=== PATIENT | female | born 1995 | race Caucasian/White ===

== ENCOUNTER → 2019-03-06 15:18 | Outpatient (CLI) | payer OTHER, SELFPAY | PROVIDERS: Visit Provider Obstetrics & Gynecology | DX: Z11.3 Encounter for screening for infections with a predominantly sexual mode of transmission (principal); Z12.4 Encounter for screening for malignant neoplasm of cervix ==

== ENCOUNTER → 2019-03-15 15:06 | Outpatient (CLI) | payer OTHER, SELFPAY ==
[2019-03-15 15:49] LABS: Color, Urine Yellow (Yellow); Glucose, Dipstick Normal (Normal); Ketone-Dipstick Negative (Negative); Leukocyte Esterase-Dipstick 25 /ul (Negative); Nitrite-Dipstick Negative (Negative); Occult Blood-Urine Negative /ul (Negative); Protein-Dipstick Negative (Negative); Specific Gravity, Urine 1.015 (1.002-1.030); Urine Bilirubin Dipstick Negative (Negative); Urine Clarity Clear (Clear); Urine Urobilinogen Normal (Normal)
[2019-03-15 16:48] LABS: Absolute Lymphocyte Count 2.66 X10^3/uL (0.83-4.51); Basophil# 0.09 X10^3/uL; Basophil% 0.6 % (0-1); Eosinophil# 0.44 X10^3/uL; Eosinophils% 3.1 % (0-5); Hematocrit 37.3 % (37-47); Hemoglobin 12.4 g/dL (12.0-15.0); Lymphocyte # 2.66 X10^3/ul (4.0); Lymphocyte % 18.8 % (19-41); Mean Corp Hgb Conc 33.2 g/dL (32-36); Mean Corpuscular Hgb 30.4 pg (27.0-32.0); Mean Corpuscular Volume 91.4 fL (81-99); Monocyte# 0.87 X10^3/uL; Monocyte% 6.2 % (0-10); NRBC Flagged by Analyzer 0 % (0-5); Neutrophil # 10.01 X10^3/uL (2.7-7.7); Neutrophil % 70.8 % (47-70); Platelet Count 276 K/mm3 (150-450); RBC Distribution Width CV 12.2 % (11.6-14.6); RBC Distribution Width SD 40.6 fl (35.1-43.9); Red Blood Count 4.08 M/mm3 (4.2-5.4); White Blood Count 14.1 K/mm3 (4.4-11.0)
[2019-03-15 17:37] LABS: Amphetamine Urine VISTA NEGATIVE (<1000 ng/mL); Barbiturate Urine VISTA NEGATIVE (< 200 ng/mL); Benzodiazepine Urine VISTA NEGATIVE (< 200 ng/mL); Cocaine Urine VISTA NEGATIVE (< 300 ng/mL); Ecstacy Urine VISTA NEGATIVE (< 500 ng/mL); Methadone Urine VISTA NEGATIVE (< 300 ng/mL); PCP Urine VISTA NEGATIVE (< 25 ng/mL); THC Urine VISTA NEGATIVE (< 50 ng/mL); Vista UDS pH Range 6
[2019-03-16 02:37] LABS: Prenatal RPR NONREACTIVE (NONREACTIVE)
[2019-03-16 09:11] LABS: HIV - WCH Non-Reactive (Nonreactive); Hepatitis B Surface Antigen Non-Reactive (Nonreactive); Hepatitis C Antibody Non-Reactive (Nonreactive); Rubella IgG 18.8 IU/mL
== END ==
PROVIDERS: Visit Provider Obstetrics & Gynecology
DX: Z34.81 Encounter for supervision of other normal pregnancy, first trimester (principal)
CPT/HCPCS: 36415; 80307; 81002; 84443; 85025; 86703; 86762; 86803; 87340

== ENCOUNTER → 2019-05-09 11:03 | Outpatient (CLI) | payer OTHER, SELFPAY | PROVIDERS: Visit Provider Obstetrics & Gynecology | DX: O99.89 Other specified diseases and conditions complicating pregnancy, childbirth and the puerperium (principal); R19.5 Other fecal abnormalities; Z3A.00 Weeks of gestation of pregnancy not specified | CPT/HCPCS: 87177; 87209 ==

== ENCOUNTER → 2019-08-01 09:14 | Outpatient (CLI) | payer OTHER, SELFPAY ==
[2019-08-01 10:51] LABS: Glucose Challenge Gest 1H 50g 69 mg/dL (70-140)
[2019-08-01 10:57] LABS: Hematocrit 33.8 % (37-47); Hemoglobin 11.1 g/dL (12.0-15.0); Mean Corp Hgb Conc 32.8 g/dL (32-36); Mean Corpuscular Hgb 30.5 pg (27.0-32.0); Mean Corpuscular Volume 92.9 fL (81-99); Mean Platelet Vol. 10.7 fl (6.2-12.0); Platelet Count 209 K/mm3 (150-450); RBC Distribution Width CV 13.2 % (11.6-14.6); RBC Distribution Width SD 44.6 fl (35.1-43.9); Red Blood Count 3.64 M/mm3 (4.2-5.4); White Blood Count 13.1 K/mm3 (4.4-11.0)
== END ==
PROVIDERS: Visit Provider Obstetrics & Gynecology
DX: Z34.83 Encounter for supervision of other normal pregnancy, third trimester (principal)
CPT/HCPCS: 36415; 82950; 85027; 86850

== ENCOUNTER → 2019-10-03 | Outpatient (CLI) | payer OTHER, SELFPAY | END | disposition home or self-care (01) | LOC: LABSPEC 16:17 | PROVIDERS: Referring Provider Obstetrics & Gynecology; Visit Provider Obstetrics & Gynecology | DX: Z36.85 Encounter for antenatal screening for Streptococcus B (principal) | CPT/HCPCS: 87077; 87081; 87186 ==

== ENCOUNTER 2019-10-20 11:25 | Outpatient (CLI) | payer OTHER, SELFPAY ==
[2019-10-20 11:46] VITALS: TEMP 37.3
[2019-10-20 11:47] VITALS: BP 110/59; PULSE 86
[2019-10-20 11:48] VITALS: BMI 26.5
[2019-10-20 12:12] LABS: ROM Internal Control Test YES-OK TO RESULT pt. (Internal QC)
[2019-10-20 12:13] LABS: ROM Patient Test Negative (Negative)
[2019-10-20 12:21] VITALS: TEMP 37.3
--- NOTE | 2019-10-20 16:52 | OB.TRI.PN ---
Progress Notes Date of Service: 10/20/19 Progress Note: Patient presents for triage evaluation secondary to possible rupture membranes FHT: 130 Moderate variability reactive no decelerations category I tracing [place]: Irregular contractions Assessment and plan: False labor negative rupture membranes on laboratory evaluation, 1 thick and high, reactive NST, reassuring maternal and status patient discharged to home to follow-up as scheduled in the office. See problem list details for additional plan information. Laboratory Studies: Laboratory Tests 10/20/19 Range/Units 11:50 Vag Amniotic Fld Detect Negative (Negative) Multi Select Codes - Urinary/Genital Urinary/Genital CPT Codes: 12763-54 non-stress test Interp
[2019-10-21 03:13] VITALS: PULSE 88; O2SAT 95
[2019-10-21 03:15] VITALS: BP 145/103; PULSE 71; TEMP 36.1
== END 2019-10-20 12:35 | disposition home or self-care (01) ==
LOC: WPOUT 11:32 → WP 10-22 10:43
PROVIDERS: Referring Provider Obstetrics & Gynecology; Visit Provider Obstetrics & Gynecology
DX: Z03.79 Encounter for other suspected maternal and fetal conditions ruled out (principal)
CPT/HCPCS: 59025; 59050; 84112; 99218; G0378

== ENCOUNTER 2019-10-23 01:32 | Inpatient (IN) | payer OTHER, SELFPAY ==
[2019-10-23] VITALS (66 sets, daily range): BP systolic 81–131; BP diastolic 45–85; PULSE 53–163; RESP 16; TEMP 36.5–37.4; O2SAT 79–100; BMI 26.4
[2019-10-23 01:32] LABS: ROM Internal Control Test YES-OK TO RESULT pt. (Internal QC); ROM Patient Test POSITIVE (Negative)
[2019-10-23] MEDS: Lactated Ringers 1,000 ML 200 ML IV ×3 (02:13→15:10)
[2019-10-23 02:32] LABS: Basophil# 0.09 X10^3/uL; Basophil% 0.6 % (0-1); Eosinophil# 0.43 X10^3/uL; Eosinophils% 2.8 % (0-5); Hematocrit 36.7 % (37-47); Hemoglobin 12.3 g/dL (12.0-15.0); Lymphocyte % 15.2 % (19-41); Mean Corp Hgb Conc 33.5 g/dL (32-36); Mean Corpuscular Hgb 31.5 pg (27.0-32.0); Mean Corpuscular Volume 93.9 fL (81-99); Mean Platelet Vol. 11.4 fl (6.2-12.0); Monocyte# 1.05 X10^3/uL; Monocyte% 6.9 % (0-10); NRBC Flagged by Analyzer 0 % (0-5); Neutrophil % 72.8 % (47-70); Platelet Count 239 K/mm3 (150-450); RBC Distribution Width CV 13.7 % (11.6-14.6); RBC Distribution Width SD 46.5 fl (35.1-43.9); Red Blood Count 3.91 M/mm3 (4.2-5.4); White Blood Count 15.1 K/mm3 (4.4-11.0)
[2019-10-23] MEDS: Oxytocin 30 units/NS 500 ml 30 UNITS/500 ML IV.SOLN IV (02:32)
--- NOTE | 2019-10-23 06:15 | HP.PCM_ITS ---
- Problem List (1) 39 weeks gestation of Status: Acute History Date of Admission: 10/23/19 Final JEFF: 10/27/19 Final JEFF Source: US <20 weeks Gestational age: 39 Weeks and 3 Days History of this : This is a 24 year-old, G [1], P [], at 39.3 weeks gestational age with c/o leaking of clear fluid. Surgical History: Surgical History (Last Updated 10/23/19 @ 18:[address] Lee Ann Burk MD) S/P appendectomy Z90.49 Allergies Sulfa (Sulfonamide Antibiotics) Allergy (Verified 10/23/19 01:08) Rash Home Medications: Home Medications Caplet 10/20/19 Smoking Status: Former smoker Alcohol: None Number of Fetus(es): 1 NST - FHR Rate Baby A Baseline: 120 Accelerations:: 15 x 15 Decelerations:: None NST Reactive:: Yes FHR Category:: Category I Uterine Activity:: 08/30 History Past Pregnancies: Past Pregnancies Delivery Date Name GA/ Weeks Outcome Route Wt Sex Labor Length Anesthesia Delivery Location Provider FOB Labs: Mom's Problem List Problem Status Onset Code 39 weeks gestation of Acute Z3A.39 Vacuum-assisted vaginal delivery Acute Z37.9 Mom's Labs & Results 10/23/19 10/23/19 10/23/19 01:14 01:52 02:14 WBC 15.1 H RBC 3.91 L Hgb 12.3 Hct 36.7 L MCV 93.9 MCH 31.5 MCHC 33.5 RDW Std Deviation 46.5 H RDW Coeff of Ann 13.7 Plt Count 239 MPV 11.4 Immature Gran % (Auto) 1.700 H Neut % (Auto) 72.8 H Lymph % (Auto) 15.2 L [place] % (Auto) 6.9 Eos % (Auto) 2.8 Baso % (Auto) 0.6 Absolute Neuts (auto) 11.0 H Absolute Lymphs (auto) 2.30 Nucleated RBC % 0 Vag Amniotic Fld Detect POSITIVE H COVID-19 (MADY) Not Detected Blood Type Antibody Screen 10/23/19 02:14 WBC RBC Hgb Hct MCV MCH MCHC RDW Std Deviation RDW Coeff of Ann Plt Count MPV Immature Gran % (Auto) Neut % (Auto) Lymph % (Auto) [place] % (Auto) Eos % (Auto) Baso % (Auto) Absolute Neuts (auto) Absolute Lymphs (auto) Nucleated RBC % Vag Amniotic Fld Detect COVID-19 (MADY) Blood Type A NEGATIVE Antibody Screen NEGATIVE Course Did the patient receive Yes care? Labs Blood Type: A RH: NEGATIVE RPR/VDRL/Syphilis Nonreactive Rubella status Immune Date Done: 03/15/19 Chlamydia Negative Gonorrhea Negative HIV/AIDS Non-Reactive Group B Strep: Positive Current Obstetrical History Gestational Diabetes No Incompetent Cervix No Infertility No IUGR No Macrosomia No Hypertension/Pre-eclampsia No Placenta Previa/Abruption Yes: resolved around 34 weeks PTL/PROM No Uterine anomaly No Oligohydramnios No Polyhydramnios No Multiple gestation No Past Medical History Asthma No Diabetes No Hypertension No Heart disease No Mitral valve prolapse No Neurologic/Seizure disorder/ No Migraines Kidney disease No Liver disease No Varicosities No Clotting disorders/Hx of DVT No Thyroid Dysfunction No Other medical diseases No Psychiatric disorders No Major trauma No Abnormal PAP smear No Sleep apnea No Mammogram in the last 2 years No Social History Marital Status: Alleged father marina Martines Hx Smoking No Smoking Status Former smoker How long have you used n/a substances (years)? What date/time did you last n/a use any of the above? Have you had any previous n/a inpatient or outpatient treatment Expected Delivery Method: Spontaneous Vaginal Number of Visits: 11 Physical Exam Vitals: Vital Signs Temp Pulse BP Pulse Ox 98.4 F 127 H 128/59 H 83 10/23/19 15:39 10/23/19 17:50 10/23/19 17:50 10/23/19 16:12 General: Alert, Oriented x3, Cooperative, No apparent distress HEENT: Atraumatic, Normocephalic Cardiovascular: Regular rate, Regular Rhythm, Normal S1, Normal S2 Lungs: Clear to auscultation, Normal air movement Abdomen: Soft, Non Tender, Non-Distended, Gravid Neurological: Neuro grossly intact Estimated gestational size: Appropriate for gestational size Presentation: Cephalic Cervix Dilation (cm): 2 Station: 0 Effacement (%): 75 - per NURY Shay Assessment/Plan All Active Problems 39 weeks gestation of (Acute) Vacuum-assisted vaginal delivery (Acute) This is a 24 year-old, G [1], P [], at 39 3/7 weeks gestational age with SROM, Cat I FHR -Pitocin as tolerated by mother and fetus -Maternal and statuses reassuring -PCN for GBS ppx
[2019-10-23] MEDS: Lactated Ringers 500 ML 999 ML IV (11:00)
[2019-10-23] MEDS: fentaNYL-bupivacaine (epidural) 100 ML BAG EPIDURAL (12:45)
[2019-10-23] MEDS: Oxytocin 30 units/NS 500 ml 30 UNITS/500 ML IV.SOLN 334 UNITS IV (16:15)
[2019-10-23] MEDS: Methylergonovine 0.2 MG/ML Ampul IM (16:40)
--- NOTE | 2019-10-23 16:53 | OP.PCM_ITS ---
Problem List (1) 39 weeks gestation of Status: Acute (2) Vacuum-assisted vaginal delivery Status: Acute Vaginal Delivery Maternal Presentation: Spontaneous Rupture of Membranes Method of Induction: - - pitocin for augmentation from latent labor Amniotic Membrane Rupture Type: Spontaneous at home Rupture of Membrane time: 10/22/19 1800H Amniotic Fluid Description: Clear Final JEFF: 10/27/19 Final JEFF Source: US <20 weeks Gestational age: 39 Weeks and 3 Days doctor who attended delivery (if requested by OB): Keturah Workman Date of Procedure: 10/23/19 Pre-Operative Diagnosis: 39 3/7wga, Category II FHR Post-Operative Diagnosis: 39 3/7wga, Category II FHR Surgery/ Procedure Performed: Vacuum Assisted Vaginal Delivery Anesthesiologist: Imelda Martinez Type of Anesthesia: Epidural Description of Procedure: Patient was FD/+2 station on my arrival with Cat II FHR. I assumed care from the CNM. Given prolonged and recurrent decelerations I advised vacuum assistance. Reviewed vacuum related risks, benefits and indications. On exam FD/+2 station and OA. The Kiwi cap was applied to the flexion point and 500mmHg suction applied. There were 4 pulls with 4 contractions and a single pop-off with . A right mediolateral episiotomy was performed and the Ritgen maneuver employed along with maternal expulsive efforts to deliver the head. The infant restituted, the anterior then posterior shoulders delivered. The was placed on the maternal abdomen and further attended by nursery personnel. The cord was doubly clamped and cut after approximately 30-60 seconds. Cord blood and cord gases were obtained. The placenta delivered spontaneously and appeared intact on inspection. Intrauterine exam was performed. A left cervical laceration at 3 o'clock was repaired with 2-0 Vicryl. The right mediolateral episiotomy was repaired with 3-0 Vicryl Rapide. Fundus firm. Sponge and needle counts correct x 2. Presentation: Vertex Placental Delivery Description: Spontaneous Placenta Disposition: [facility] Cord Vessel Description: 3 Vessels Nuchal Cord Compression: Without compression Cord Gases drawn per routine: ABG, VBG Cord Entanglement: None Drain: - - straight cath of bladder Estimated Blood Loss: 550 ml A gender: Female (1 minute): 8 (5 minute): 9 Episiotomy Description: Right Mediolateral, 2nd degree Laceration: Cervical Extension/lac Medications given after delivery: IV Pitocin, IM Methergin Complications: None
[2019-10-24] MEDS: Acetaminophen 500 MG Tablet 1000 MG PO (01:21)
[2019-10-24 04:00] VITALS: BP 105/59; PULSE 74; RESP 18; TEMP 36.9
--- NOTE | 2019-10-24 08:17 | PCM.PN.OB ---
Patient Problems: Active and Suspected Problems 39 weeks gestation of (Acute) Vacuum-assisted vaginal delivery (Acute) Subjective: Got some rest overnight and feeling much better. Mild cramping and vaginal pain. Has been taking Motrin and Tylenol and due for next dose. daughter. It takes a few minutes to get her to latch correctly, but once she latches she does well. Denies heavy bleeding. Passing flatus and urinating well. Objective: VSS. Fundus is firm, midline, u/1. Lochia rubra moderate. - Physical Exam Vitals/I&O's: Vital Signs Temp Pulse Resp BP Pulse Ox 98.4 F 74 18 105/59 L 83 10/24/19 04:00 10/24/19 04:00 10/24/19 04:00 10/24/19 04:00 10/23/19 16:12 Oxygen Delivery Method Room Air Weight: 65.68 kg Body Mass Index (BMI) 26.4 Intake and Output for Last 24 Hours 10/22/19 10/23/19 10/24/19 23:59 23:59 23:59 Intake Total 3506.67 / 3506.67 Output Total 1000 / 1000 Balance 2506.67 / 2506.67 General: Alert, Oriented x3, Cooperative HEENT: Atraumatic, PERRLA, EOMI, Normocephalic Neck: Supple, No JVD, Negative Carotid Bruits Lungs: Clear to auscultation, Normal air movement Cardiovascular: Regular rate, No murmurs Abdomen: Bowel Sounds Present, Soft, Non Tender Extremities: No edema, Capillary Refill Less than 3 Seconds Skin: No rashes, No breakdown Musculoskeletal: No Tenderness to Palpation of Joints or Extremities Neurological: Cranial nerves II-XII grossly intact Psych/Mental Status: Normal Affect, Appropriate Current Medications Acetaminophen (Tylenol) 325 - 650 mg PO Q4H PRN PRN PRN Reason: Pain Score 1-3/10 Acetaminophen (Tylenol) 1,000 mg PO Q8H PRN PRN PRN Reason: Pain Score 1-3/10 Last Admin: 10/24/19 01:21 Dose: 1,000 mg Documented by: Acetaminophen (Tylenol Liquid) 650 mg PO Q4H PRN PRN PRN Reason: Pain or Fever Bisacodyl (Dulcolax) 10 mg RECTAL UD PRN PRN Reason: If no BM Dibucaine (Dibucaine) 1 applic TOPICAL TID PRN PRN; Protocol PRN Reason: Discomfort Hydrocortisone (Hytone) 1 applic TOPICAL TID PRN PRN; Protocol PRN Reason: Discomfort Ibuprofen (Motrin Liquid) 600 mg PO Q6H PRN PRN PRN Reason: Pain/Inflammation Methylergonovine Maleate (Methergine) 0.2 mg IM X1 PRN PRN Reason: Excess bleeding/uterine atony Last Admin: 10/23/19 16:40 Dose: 0.2 mg Documented by: Senna/Docusate Sodium (Senokot-S, Deisi-Colace) 1 - 2 tablet PO DAILY PRN PRN PRN Reason: Constipation Simethicone (Mylicon) 80 mg PO PCHS PRN PRN Reason: Indigestion/Stomach pain Sodium Chloride () 5 - 15 ml IV UD PRN PRN Reason: SALINE FLUSH Medical Necessity - Tobacco Use Smoking Status: Former smoker Assessment/Plan All Active Problems 39 weeks gestation of (Acute) Vacuum-assisted vaginal delivery (Acute) This is a 24 year-old, G [1], P [0], PPD#1 s/p VAVD doing well. -Rh negative - -Female infant without a clitoral awad. Examined by Dr. Iqbal and Dr. Wells -Routine care -Educated on , latch, and engorgement as well as depression, cramping with involution and normal lochia pattern -May want to discharge this evening, will return to check on her after 24H
--- NOTE | 2019-10-24 08:28 | DCINST_ITS ---
Discharge Diet: No Restrictions Discharge Activity: Return to Normal Activity, May not drive while taking narcotic pain medications., May Shower May resume sexual activity in: 4-6 weeks Additional Activity Instructions:: Nothing in the vagina for 4-6 weeks. You may return to work/school in 6 weeks. Call your doctor if your incision/area has: Continuous Slow Oozing, Sudden Increased Bleeding, Increased Pain/ Swelling, Increased Redness, Foul Smelling Discharge Additional Instructions: If you experience any of the following, contact your healthcare provider. * Bleeding that soaks a pad every hour for 2 hours * Fever 100.4 or higher * Unrelieved incision or abdominal pain * Swelling, redness, discharge or bleeding from your incision or episiotomy site * Your incision begins to separate * Problems urinating (including inability to urinate or burning while urinating). * Visual changes * Severe headache * Flu-like symptoms * Pain or redness in one of both of your breasts * Pain, warmth, tenderness or swelling in your legs, especially the calf area * Frequent nausea and vomiting * Symptoms of depression or anxiety If you experience any of the following, call 911 or go to the nearest Emergency Room. * Chest pain * Problems breathing * Seizure activity * Partial or complete paralysis of a body part, slurred speech, weakness or drooping of the face, or a sudden inability to walk or hold your balance Allergies/Adverse Reactions: Allergies Sulfa (Sulfonamide Antibiotics) Allergy (Verified 10/23/19 01:08) Rash Medications to take at Discharge Caplet 10/20/19 Please Follow Up With: Mabel Sparks CNM When: Call to make an appointment with your CNM in 2 weeks for a telehealth appt and call for in person appt for 6 weeks. Test Results: Test results from this visit will be discussed in further detail at your follow- up appointment, if applicable.
--- NOTE | 2019-10-24 08:28 | PCM.DCVAG ---
Discharge Diet: No Restrictions Discharge Activity: Return to Normal Activity, May not drive while taking narcotic pain medications., May Shower May resume sexual activity in: 4-6 weeks Additional Activity Instructions:: Nothing in the vagina for 4-6 weeks. You may return to work/school in 6 weeks. Call your doctor if your incision/area has: Continuous Slow Oozing, Sudden Increased Bleeding, Increased Pain/ Swelling, Increased Redness, Foul Smelling Discharge Additional Instructions: If you experience any of the following, contact your healthcare provider. Bleeding that soaks a pad every hour for 2 hours Fever 100.4 or higher Unrelieved incision or abdominal pain Swelling, redness, discharge or bleeding from your incision or episiotomy site Your incision begins to separate Problems urinating (including inability to urinate or burning while urinating). Visual changes Severe headache Flu-like symptoms Pain or redness in one of both of your breasts Pain, warmth, tenderness or swelling in your legs, especially the calf area Frequent nausea and vomiting Symptoms of depression or anxiety If you experience any of the following, call 911 or go to the nearest Emergency Room. Chest pain Problems breathing Seizure activity Partial or complete paralysis of a body part, slurred speech, weakness or drooping of the face, or a sudden inability to walk or hold your balance Allergies/Adverse Reactions: Allergies Sulfa (Sulfonamide Antibiotics) Allergy (Verified 10/23/19 01:08) Rash Medications to take at Discharge Caplet 10/20/19 Please Follow Up With: Mabel Sparks CNM When: Call to make an appointment with your CNM in 2 weeks for a telehealth appt and call for in person appt for 6 weeks. Test Results: Test results from this visit will be discussed in further detail at your follow-up appointment, if applicable.
[2019-10-24 09:15] VITALS: BP 108/66; PULSE 80; RESP 16; TEMP 36.7
[2019-10-24] MEDS: Ibuprofen 100 MG/5 ML UDC 600 MG PO ×3 (09:17→23:14)
[2019-10-24] MEDS: Senna/Docusate Sodium 1 Tablet PO (11:51)
[2019-10-24] MEDS: Acetaminophen 650 MG/20 ML UDC PO ×2 (11:51→20:22)
[2019-10-24 12:20] VITALS: BP 102/56; PULSE 82; TEMP 36.7
[2019-10-24 17:25] VITALS: BP 109/67; PULSE 74; RESP 14; TEMP 36.6
[2019-10-24 21:26] VITALS: BP 110/63; PULSE 79; RESP 16; TEMP 36.6; O2SAT 97
[2019-10-25 02:07] VITALS: BP 107/60; PULSE 58; RESP 14; TEMP 36.7
[2019-10-25 08:00] VITALS: BP 106/67; PULSE 92; RESP 16; TEMP 36.5; O2SAT 99
--- NOTE | 2019-10-25 08:12 | PCM.PN.OB ---
Patient Problems: Active and Suspected Problems 39 weeks gestation of (Acute) Vacuum-assisted vaginal delivery (Acute) Subjective: Feeling well and rested. Denies pain or heavy bleeding. is going well with no concerns. Worried about first bowel movement, but is passing flatus. Would like to discharge home. Objective: VSS. Fundus is firm, midline, u/2. Lochia rubra moderate - Physical Exam Vitals/I&O's: Vital Signs Temp Pulse Resp BP Pulse Ox 98.1 F 58 L 14 107/60 97 10/25/19 02:07 10/25/19 02:07 10/25/19 02:07 10/25/19 02:07 10/24/19 21:26 Oxygen Delivery Method Room Air Weight: 65.68 kg Body Mass Index (BMI) 26.4 Intake and Output for Last 24 Hours 10/23/19 10/24/19 10/25/19 23:59 23:59 23:59 Intake Total 3506.67 / 3506.67 Output Total 1000 / 1000 Balance 2506.67 / 2506.67 General: Alert, Oriented x3, Cooperative HEENT: Atraumatic, PERRLA, EOMI, Normocephalic Neck: Supple, No JVD, Negative Carotid Bruits Lungs: Clear to auscultation, Normal air movement Cardiovascular: Regular rate, No murmurs Abdomen: Bowel Sounds Present, Soft, Non Tender Extremities: No edema, Capillary Refill Less than 3 Seconds Skin: No rashes, No breakdown Musculoskeletal: No Tenderness to Palpation of Joints or Extremities Neurological: Cranial nerves II-XII grossly intact Psych/Mental Status: Normal Affect, Appropriate Current Medications Acetaminophen (Tylenol) 325 - 650 mg PO Q4H PRN PRN PRN Reason: Pain Score 1-3/10 Acetaminophen (Tylenol) 1,000 mg PO Q8H PRN PRN PRN Reason: Pain Score 1-3/10 Last Admin: 10/24/19 01:21 Dose: 1,000 mg Documented by: Acetaminophen (Tylenol Liquid) 650 mg PO Q4H PRN PRN PRN Reason: Pain or Fever Last Admin: 10/24/19 20:22 Dose: 650 mg Documented by: Bisacodyl (Dulcolax) 10 mg RECTAL UD PRN PRN Reason: If no BM Dibucaine (Dibucaine) 1 applic TOPICAL TID PRN PRN; Protocol PRN Reason: Discomfort Hydrocortisone (Hytone) 1 applic TOPICAL TID PRN PRN; Protocol PRN Reason: Discomfort Ibuprofen (Motrin Liquid) 600 mg PO Q6H PRN PRN PRN Reason: Pain/Inflammation Last Admin: 10/24/19 23:14 Dose: 600 mg Documented by: Methylergonovine Maleate (Methergine) 0.2 mg IM X1 PRN PRN Reason: Excess bleeding/uterine atony Last Admin: 10/23/19 16:40 Dose: 0.2 mg Documented by: Senna/Docusate Sodium (Senokot-S, Deisi-Colace) 1 - 2 tablet PO DAILY PRN PRN PRN Reason: Constipation Last Admin: 10/24/19 11:51 Dose: 1 tablet Documented by: Simethicone (Mylicon) 80 mg PO PCHS PRN PRN Reason: Indigestion/Stomach pain Sodium Chloride () 5 - 15 ml IV UD PRN PRN Reason: SALINE FLUSH Medical Necessity - Tobacco Use Smoking Status: Former smoker Assessment/Plan All Active Problems 39 weeks gestation of (Acute) Vacuum-assisted vaginal delivery (Acute) A/P: S/P VAVD day #2 Normal involution and course mother Educated on OTC stool softener, hydration, and high fiber until first bowel movement Dyad stable To discharge home with a 2 week telehealth follow up appt and a 6 week routine appt Advised of depression and when to call
[2019-10-25] MEDS: Acetaminophen 650 MG/20 ML UDC PO (12:03)
== END 2019-10-25 12:05 | disposition home or self-care (01) | DRG 768 ==
LOC: WPOUT 01:33 → WP 01:33
PROVIDERS: Admitting Provider Obstetrics & Gynecology; Visit Provider Obstetrics & Gynecology
DX: O76 Abnormality in fetal heart rate and rhythm complicating labor and delivery (principal); Z37.0 Single live birth; O71.3 Obstetric laceration of cervix; O42.02 Full-term premature rupture of membranes, onset of labor within 24 hours of rupture; O99.824 Streptococcus B carrier state complicating childbirth; O70.1 Second degree perineal laceration during delivery; Z3A.39 39 weeks gestation of pregnancy; Z87.891 Personal history of nicotine dependence
CPT/HCPCS: 59025; 59050; 84112; 85025; 86850; 86900; 86901; 87635; 99218; G2023; J7120; G0378; U0003

== ENCOUNTER → 2020-11-18 09:49 | Outpatient (CLI) | payer OTHER, SELFPAY ==
[2019-10-23 01:08] VITALS: BMI 26.4
[2020-11-18 11:27] LABS: hCG Titer Quant., Serum 194 mIU/mL (1-3)
== END ==
LOC: LABSPEC 09:51 → WOBLAB 09:54
PROVIDERS: Visit Provider Student in an Organized Health Care Education/Training Program
DX: N92.6 Irregular menstruation, unspecified (principal)
CPT/HCPCS: 36415; 84702

== ENCOUNTER → 2020-11-20 10:08 | Outpatient (CLI) | payer OTHER, SELFPAY ==
[2019-10-23 01:08] VITALS: BMI 26.4
[2020-11-20 11:02] LABS: hCG Titer Quant., Serum 247 mIU/mL (1-3)
== END ==
PROVIDERS: Visit Provider Student in an Organized Health Care Education/Training Program
DX: O20.0 Threatened abortion (principal); Z3A.00 Weeks of gestation of pregnancy not specified
CPT/HCPCS: 36415; 84702

== ENCOUNTER → 2020-11-28 09:55 | Outpatient (CLI) | payer OTHER, SELFPAY ==
[2019-10-23 01:08] VITALS: BMI 26.4
[2020-11-28 10:15] LABS: Hematocrit 39.9 % (37-47); Hemoglobin 13.2 g/dL (12.0-15.0); Mean Corp Hgb Conc 33.1 g/dL (32-36); Mean Corpuscular Hgb 30.1 pg (27.0-32.0); Mean Corpuscular Volume 90.9 fL (81-99); Mean Platelet Vol. 10.1 fl (6.2-12.0); Platelet Count 301 K/mm3 (150-450); RBC Distribution Width CV 12.3 % (11.6-14.6); RBC Distribution Width SD 41.1 fl (35.1-43.9); Red Blood Count 4.39 M/mm3 (4.2-5.4); White Blood Count 7.9 K/mm3 (4.4-11.0)
[2020-11-28 11:04] LABS: ALB/GLOB Ratio 1.2 RATIO (0.9-2.4); AST(SGOT) 13 U/L (15-37); Alanine Aminotransfer ALT/SGPT 19 U/L (13-56); Albumin, Serum 4.2 g/dL (3.2-5.0); Alkaline Phosphatase 66 U/L (45-117); Anion Gap 6 (5-15); BUN 15 mg/dL (7-18); BUN/Creat Ratio 22.6 RATIO (10-20); Calcium,Total 8.9 mg/dL (8.5-10.1); Chloride 105 mmol/L (98-107); Creatinine, Serum 0.66 mg/dL (0.55-1.02); EST Glomerular Filtration Rate 115 mL/min (>60); Est Glom Filt Rate - Afr Amer 139 mL/min (>60); Globulin 3.4 g/dL (2.2-4.2); Glucose 91 mg/dL (74-106); Potassium 4.5 mmol/L (3.5-5.1); Protein, Total 7.6 g/dL (6.4-8.2); Sodium Level 137 mmol/L (136-145); hCG Titer Quant., Serum 668 mIU/mL (1-3)
== END ==
PROVIDERS: Visit Provider Obstetrics & Gynecology
DX: O02.81 Inappropriate change in quantitative human chorionic gonadotropin (hCG) in early pregnancy (principal); Z3A.00 Weeks of gestation of pregnancy not specified
CPT/HCPCS: 36415; 80053; 84702; 85027

== ENCOUNTER → 2020-12-01 10:28 | Outpatient (CLI) | payer OTHER, SELFPAY ==
[2019-10-23 01:08] VITALS: BMI 26.4
[2020-12-01 11:56] LABS: hCG Titer Quant., Serum 929 mIU/mL (1-3)
== END ==
PROVIDERS: Visit Provider Obstetrics & Gynecology
DX: O02.81 Inappropriate change in quantitative human chorionic gonadotropin (hCG) in early pregnancy (principal); Z3A.00 Weeks of gestation of pregnancy not specified
CPT/HCPCS: 36415; 84702

== ENCOUNTER → 2020-12-05 10:14 | Outpatient (CLI) | payer OTHER, SELFPAY ==
[2019-10-23 01:08] VITALS: BMI 26.4
[2020-12-05 11:34] LABS: hCG Titer Quant., Serum 1113 mIU/mL (1-3)
== END ==
PROVIDERS: Visit Provider Obstetrics & Gynecology
DX: O02.81 Inappropriate change in quantitative human chorionic gonadotropin (hCG) in early pregnancy (principal); Z3A.00 Weeks of gestation of pregnancy not specified
CPT/HCPCS: 36415; 84702

== ENCOUNTER 2020-12-05 19:58 | Emergency (ER) | payer OTHER, SELFPAY ==
[2019-10-23 01:08] VITALS: BMI 26.4
[2020-12-05 19:59] VITALS: BP 141/73; PULSE 92; RESP 16; TEMP 36.4; O2SAT 97; BMI 20.1
--- NOTE | 2020-12-05 20:34 | US_ITS ---
STUDY: FIRST TRIMESTER OBSTETRICAL ULTRASOUND REASON FOR EXAM: Female, 25 years old ectopic versus miscarriage. Vaginal bleeding. Right lower quadrant pain. Increasing beta hCG levels. Most recent 1113 LMP: 10/03/2020. TECHNIQUE: Transvaginal TECHNICAL QUALITY: Adequate. PRIOR ULTRASOUND: None. FINDINGS: There is visualization of a single gestational sac in a normal intrauterine position. The mean sac diameter (MSD) measures 0.53 cm, indicating an estimated gestational age (EGA) of 5 weeks, 2 days. The gestational sac shape is within normal limits. There is no demonstrated yolk sac. The placenta is non-visualized. There is no demonstrated embryo ( pole). The estimated gestation age (EGA) by LMP is 9 weeks, 0 days. The estimated date of delivery (JEFF) by LMP is 07/10/2020. The estimated gestation age (EGA) by US is 5 weeks, 2 days. The estimated date of delivery (JEFF) by US is 08/05/2020. The uterus measures 5.5 x 4.6 x 8.5 cm. The endometrium surrounding the gestational sac appears mildly heterogenous. On a cine loop and higher endometrial contents surrounding the sac appeared to move with downward pressure on the probe. There is no demonstrated uterine fibroid. The cervix is closed. The right ovary measures 3.6 x 3.2 x 1.8 cm. There is a hypoechoic nodule seen in the inferior portion right ovary measuring 1.9 x 2.2 x 1.5 cm. There is associated increased vascularity. Question regressing corpus luteum cyst. There is no visualized right adnexal mass or complex lesion. The left ovary measures 3.2 x 1.9 x 1.6 cm. There are multiple follicles of the left ovary without a dominant cyst. There is no visualized left adnexal mass or complex lesion. Oral vascularity on DOPPLER imaging There is no fluid in the cul de sac. US/Transvaginal w/Preg US IMPRESSION: 1. Intrauterine gestational sac without yolk sac or pole. Estimated gestational age is 5 weeks, 2 days. JEFF is 08/05/2020. Question early versus miscarriage. 2. Prominent heterogenous endometrium surrounding the gestational sac. This appears to move with pressure from the program. Question impending miscarriage. 3. Probable regressing corpus luteum cyst right ovary. Electronically Signed: Michael Gray DO at 22:15 EDT Tel [phone], Service support ,
--- NOTE | 2020-12-05 20:36 | ED.VIS.FEGU ---
HPI HPI - Female History of Present Illness Chief Complaint: Abd Pain Detail of Chief Complaint: Right-sided pelvic pain and bleeding. Currently . Informant: patient and spouse/S.O. Pain Pain: Positive for Pelvic Pain Onset: Today and Days Context: Gradual Onset Timing: Intermittent Quality: Positive for Cramping Current Severity: Mild Maximum Severity: Mild Bleeding Issue: Positive for Vaginal bleeding Onset: Today and Yesterday Context: Gradual Onset Timing: Intermittent Current Severity: Mild Severity: Mild Associated Symptoms Associated Symptoms: Negative for Dysuria Test: Positive Sexually: Positive for Active P: 1 Ab: 0 Narrative Narrative: 25-year-old female Ab0. Currently is around 5 to 7 weeks. She is seeing her [facility] Dr. Greer Burk. They are concerned the patient may have either a miscarriage or an ectopic. Her quantitative hCGs have not been going up appropriately. The most recent one done today was 1113. The one prior to that was 929. The last ultrasound did not show anything in the uterus. They were unsure if it is due to an ectopic or other reasons. She states the bleeding she is having is mild and much less than the. With minimal to no clots. She is blood type A-. She did receive RhoGam with her first . Prior similar symptoms: No Recent Illness/Hospitalization: No PFSH PFSH Home Medications Caplet 1 cap PO/SL DAILY 10/20/19 [History Last Taken 10/20/19] Allergy/AdvReac Type Severity Reaction Status Date / Time Sulfa (Sulfonamide Allergy Rash Verified 12/05/20 20:01 Antibiotics) Surgical History S/P appendectomy Social History Smoking Status: Former smoker ROS ROS ED ROS Narrative No recent illness. Review of Systems ROS Unobtainable: Denies due to encephalopathy Constitutional Constitutional ED: Denies fever(s) Eyes Eyes: Denies change in vision ENT ENT ED: Denies ear pain Cardiovascular Cardiovascular: Denies chest pain Respiratory/Chest Respiratory/Chest: Denies dyspnea Gastrointestinal Gastrointestinal: Denies abdominal pain Genitourinary Genitourinary ED: Denies dysuria Musculoskeletal Musculoskeletal: Denies myalgias Integumentary Denies rash Neurologic Neurologic: Denies headache(s) Psychiatric Psychiatric: Denies depression Endocrine Endocrinology: Denies polyuria Hematologic/Lymphatic Hematologic/Lymphatic: Denies easy bruising Allergic/Immunologic Allergic/Immunologic ED: Denies urticaria EXAM Physical Exam Narrative Exam Narrative: Well-appearing young female accompanied by her . Vital signs are stable afebrile. No distress. HEENT exam unremarkable. Lungs are clear. Heart regular rhythm no murmur. Abdomen soft nondistended normal bowel sounds no peritoneal signs. Going no significant tenderness abdominal exam. Moving all 4 extremities. No edema. Neurologically she is awake alert with no focal motor deficits. Const Vital Signs: 12/05/20 19:59 Temperature 97.6 F L Temperature Source Temporal Pulse Rate 92 Respiratory Rate 16 Blood Pressure 141/73 H Blood Pressure Mean 95 Pulse Ox 97 Oxygen Delivery Method Room Air Positive well nourished and well developed General Appearance ED: well developed and NAD HEENT Reports moist mucous membranes Negative for trauma or tenderness Eyes PERRL and EOMs intact bilaterally General Eye ED: Negative for pale conjunctiva Neck no lymphadenopathy, supple and no JVD Thyroid: Negative for tender Chest Wall inspection of chest normal and palpation of chest normal Resp normal respiratory effort and clear to auscultation bilaterally Cardio regular rate, regular rhythm, S1 normal heart sound, no murmurs and no JVD GI normal to inspection, nondistended, normoactive bowel sounds, soft to palpation, non-tender, non-distended and no masses Palpation: Negative for tender, guarding or rigid Back/Spine no CVA tenderness Extremity normal to inspection and full ROM General Extremety ED: Negative for edema or tenderness General Extremity: Negative for edema Neuro oriented x3 Sensorium / Orientation: alert, oriented to person, oriented to place and oriented to time Motor Exam: strength 5/5 throughout Psych mental status grossly normal Skin no rashes or lesions noted MDM MDM MDM Narrative Medical decision making narrative: 25-year-old female with right-sided pelvic pain and mild bleeding. Currently being worked up for ectopic versus miscarriage. Her blood type is A-. She will receive labs along with RhoGam and a pelvic ultrasound. I will discuss with her [facility] group once I get the Lyme test back. Repeat exam patient doing well at 10:20 PM. Awaiting pelvic ultrasound results. Repeat exam patient is doing well at 10:48 PM. Abdomen is benign. She is resting comfortably. She, her and I have gone over all of her test results. She will follow up with her [facility] this coming week. She knows to return if increasing pain or heavy bleeding. I will speak to the provider (Anitra) on-call for their group. Lab Data Attestation: I reviewed the patient's lab results. Lab results narrative: Urinalysis negative. No signs of infection. Blood type a negative. Transvaginal pelvic ultrasound is read by the radiologist shows an intrauterine gestational sac without a yolk sac or pole estimated gestational age is 5 weeks and 2 days. Radiologist question early versus miscarriage. Labs: Laboratory Results - last 24 hr 12/05/20 12/05/20 20:45 20:55 Urine Color Yellow Urine Clarity Clear Urine pH 6.0 Ur Specific [place] 1.015 Urine Protein Negative Urine Glucose (UA) Normal Urine Ketones Negative Urine Occult Blood 50 H Urine Nitrite Negative Urine Bilirubin Negative Urine Urobilinogen Normal Ur Leukocyte Esterase Negative Urine RBC 0 SEEN Urine WBC 0 SEEN Ur Squamous Epith Cells 0-5 SEEN Urine Bacteria 0 SEEN Urine Mucus 0 SEEN Blood Type A NEGATIVE Antibody Screen NEGATIVE Radiography Diagnostic Testing: Radiology Impression Obstetrics Ultrasound 12/05/20 20:34 IMPRESSION: 1. Intrauterine gestational sac without yolk sac or pole. Estimated gestational age is 5 weeks, 2 days. JEFF is 08/05/2020. Question early versus miscarriage. 2. Prominent heterogenous endometrium surrounding the gestational sac. This appears to move with pressure from the program. Question impending miscarriage. 3. Probable regressing corpus luteum cyst right ovary. Electronically Signed: Michael Gray DO at 22:15 EDT Tel [phone], Service support , Discharge Plan Triage Chief Complaint: Abd Pain ED Provider: Papa Howard Dx/Rx/DC Orders Clinical Impression: Miscarriage, threatened, early Instructions: ED Possible Miscarriage ... Prescriptions: No Action Caplet 1 cap PO/SL DAILY RF: 0 Primary Care Provider: Gómez Durham,Luisa Primary Referrals: Lee Ann Duarte MD [STAFF PHYSICIAN] - As soon as possible (Call and follow-up with your [facility]'s office on Tuesday. You need further evaluation, repeat HCG and ultrasound.) Care Physician,No Primary [Primary Care Provider] - Activity Restrictions/Additional Instructions: Plenty of fluids and rest. Tylenol for pain. Concern at this time is for a pending miscarriage. It does not look like an ectopic at this time. Call and follow-up with your [facility] physician on Tuesday. You may still have cramping and bleeding over the weekend. If you get severe pain or heavy bleeding then you need to be evaluated. Otherwise you can follow-up. Disposition Disposition: Home, Self Care
[2020-12-05 21:09] LABS: Bacteria 0 SEEN /hpf (None Seen); Mucous, Urine 0 SEEN /hpf (<or=2+); White Blood Cells 0 SEEN /hpf (0-5)
[2020-12-05 21:15] LABS: Color, Urine Yellow (Yellow); Glucose, Dipstick Normal (Normal); Ketone-Dipstick Negative (Negative); Leukocyte Esterase-Dipstick Negative /ul (Negative); Nitrite-Dipstick Negative (Negative); Occult Blood-Urine 50 /ul (Negative); Protein-Dipstick Negative (Negative); Specific Gravity, Urine 1.015 (1.002-1.030); Urine Bilirubin Dipstick Negative (Negative); Urine Clarity Clear (Clear); Urine Urobilinogen Normal (Normal)
[2020-12-05 21:24] LABS: Squamous Epithelial Cells - UA 0-5 SEEN /hpf (5-10)
[2020-12-05 21:25] LABS: Red Blood Cells-Urine 0 SEEN /hpf (0-5)
[2020-12-05 23:18] VITALS: BP 104/66; PULSE 68; RESP 16; O2SAT 99
== END 2020-12-05 23:19 | disposition home or self-care (01) ==
PROVIDERS: Emergency Provider Emergency Medicine
DX: O20.0 Threatened abortion (principal); Z3A.01 Less than 8 weeks gestation of pregnancy; Z87.891 Personal history of nicotine dependence
CPT/HCPCS: 76817; 81001; 86850; 86900; 86901; 90384; 96372; 99284; A4216; J2790

== ENCOUNTER → 2020-12-23 10:06 | Outpatient (CLI) | payer OTHER, SELFPAY ==
[2020-12-05 19:59] VITALS: BMI 20.1
[2020-12-23 11:19] LABS: hCG Titer Quant., Serum 2 mIU/mL (1-3)
== END ==
PROVIDERS: Visit Provider Obstetrics & Gynecology
DX: O02.81 Inappropriate change in quantitative human chorionic gonadotropin (hCG) in early pregnancy (principal); Z3A.00 Weeks of gestation of pregnancy not specified
CPT/HCPCS: 36415; 84702

== ENCOUNTER → 2021-03-03 12:24 | Outpatient (CLI) | payer OTHER, SELFPAY ==
[2021-03-06 00:07] LABS: Chlamydia By Nucleic Acid AMP Negative (Negative)
[2021-03-06 09:12] LABS: Gonococcus By Nucleic Acid AMP Negative (Negative)
== END ==
PROVIDERS: Visit Provider Student in an Organized Health Care Education/Training Program
DX: Z32.01 Encounter for pregnancy test, result positive (principal); Z11.3 Encounter for screening for infections with a predominantly sexual mode of transmission
CPT/HCPCS: 36415; 84702; 87491; 87591

== ENCOUNTER → 2021-03-10 10:39 | Outpatient (CLI) | payer OTHER, SELFPAY ==
[2021-03-10 14:07] LABS: Absolute Lymphocyte Count 1.56 X10^3/uL (0.83-4.51); Absolute Neutrophil Count 7.7 X10^3/uL (2.0-7.7); Basophil# 0.07 X10^3/uL; Basophil% 0.7 % (0-1); Eosinophil# 0.42 X10^3/uL; Hematocrit 37.5 % (37-47); Hemoglobin 12.2 g/dL (12.0-15.0); Lymphocyte # 1.56 X10^3/ul (0.83-4.51); Mean Corp Hgb Conc 32.5 g/dL (32-36); Mean Corpuscular Hgb 29.8 pg (27.0-32.0); Mean Corpuscular Volume 91.7 fL (81-99); Mean Platelet Vol. 10.9 fl (6.2-12.0); Monocyte# 0.58 X10^3/uL; Monocyte% 5.6 % (0-10); NRBC Flagged by Analyzer 0 % (0-5); Neutrophil # 7.72 X10^3/uL (2.7-7.7); Platelet Count 268 K/mm3 (150-450); RBC Distribution Width CV 12.8 % (11.6-14.6); RBC Distribution Width SD 42.2 fl (35.1-43.9); Red Blood Count 4.09 M/mm3 (4.2-5.4); White Blood Count 10.4 K/mm3 (4.4-11.0)
[2021-03-10 14:59] LABS: HIV - WCH Non-Reactive (Nonreactive); Hepatitis B Surface Antigen Non-Reactive (Nonreactive); Rubella IgG Reactive (Nonreactive); Syphilis Antibodies Non-reactive
[2021-03-10 15:00] LABS: Hepatitis C Antibody Non-Reactive (Nonreactive)
== END ==
PROVIDERS: Visit Provider Student in an Organized Health Care Education/Training Program
DX: Z34.81 Encounter for supervision of other normal pregnancy, first trimester (principal)
CPT/HCPCS: 36415; 85025; 86703; 86762; 86780; 86803; 86870; 87086; 87088; 87340

== ENCOUNTER → 2021-03-13 16:13 | Outpatient (CLI) | payer OTHER, SELFPAY | PROVIDERS: Visit Provider Student in an Organized Health Care Education/Training Program | DX: Z67.90 Unspecified blood type, Rh positive (principal) | CPT/HCPCS: 36415 ==

== ENCOUNTER → 2021-04-14 16:40 | Outpatient (CLI) | payer OTHER, SELFPAY | PROVIDERS: Visit Provider Student in an Organized Health Care Education/Training Program | DX: Z23 Encounter for immunization (principal) | CPT/HCPCS: 36415 ==

== ENCOUNTER → 2021-05-12 10:52 | Outpatient (CLI) | payer OTHER, SELFPAY | PROVIDERS: Visit Provider Student in an Organized Health Care Education/Training Program | DX: O02.81 Inappropriate change in quantitative human chorionic gonadotropin (hCG) in early pregnancy (principal); Z3A.00 Weeks of gestation of pregnancy not specified | CPT/HCPCS: 36415 ==

== ENCOUNTER 2021-06-09 10:40 | Outpatient (CLI) | payer OTHER, SELFPAY | END 2021-06-09 23:59 | disposition short-term general hospital (02) | PROVIDERS: Visit Provider Student in an Organized Health Care Education/Training Program | DX: E28.9 Ovarian dysfunction, unspecified (principal); N92.5 Other specified irregular menstruation | CPT/HCPCS: 36415 ==

== ENCOUNTER 2021-07-13 09:15 | Outpatient (CLI) | payer OTHER, SELFPAY ==
[2021-07-13 09:46] LABS: Hematocrit 33.5 % (37-47); Hemoglobin 11.5 g/dL (12.0-15.0); Mean Corp Hgb Conc 34.3 g/dL (32-36); Mean Corpuscular Volume 93.3 fL (81-99); Mean Platelet Vol. 10.5 fl (6.2-12.0); Platelet Count 228 K/mm3 (150-450); RBC Distribution Width CV 13.3 % (11.6-14.6); RBC Distribution Width SD 45.4 fl (35.1-43.9); Red Blood Count 3.59 M/mm3 (4.2-5.4); White Blood Count 12.4 K/mm3 (4.4-11.0)
[2021-07-13 10:03] LABS: Glucose Challenge Gest 1H 50g 71 mg/dL (70-140)
== END 2021-07-13 23:59 | disposition home or self-care (01) ==
PROVIDERS: Visit Provider Student in an Organized Health Care Education/Training Program
DX: O02.81 Inappropriate change in quantitative human chorionic gonadotropin (hCG) in early pregnancy (principal)
CPT/HCPCS: 36415; 82950; 85027; 86850

== ENCOUNTER 2021-09-11 20:50 | Outpatient (CLI) | payer OTHER, SELFPAY ==
[2021-09-11 21:07] VITALS: TEMP 37
[2021-09-11 21:10] VITALS: BP 105/61; PULSE 102
[2021-09-11 21:16] VITALS: BMI 25.9
[2021-09-11 22:02] LABS: ROM Internal Control Test YES-OK TO RESULT pt. (Internal QC); ROM Patient Test Negative (Negative)
[2021-09-12 00:16] LABS: Group B Strep DNA By PCR POSITIVE (Negative); Probe Check PASS
--- NOTE | 2021-09-12 08:23 | OB.TRI.NOTE ---
HPI - General HPI Narrative PAGE FADUMO, is a 25 F who presents at 36 4/7 (JEFF 10/05/21) with c/o leaking of fluid after intercourse. PFSH PFSH Medical History (Updated 09/12/21 @ 08:[address] Lee Ann Burk MD) Vacuum-assisted vaginal delivery Home Medications Caplet 1 cap PO/SL DAILY 10/20/19 [History Last Taken 09/11/21] Allergy/AdvReac Type Severity Reaction Status Date / Time Sulfa (Sulfonamide Allergy Rash Verified 12/05/20 20:01 Antibiotics) Surgical History S/P appendectomy Social History Smoking Status: Former smoker History Elective abortions Hx Para 0 Spontaneous abortions Hx # Term Pregnancies Ectopic pregnancies Hx # Pregnancies Multiple births # of living children NST FHR Rate Baby A Baseline: 130 Variability:: Moderate Accelerations:: 15 x 15 Decelerations:: None NST Reactive:: Yes FHR Category:: Category I Uterine Activity:: irritability Assessment & Plan (1) 36 weeks gestation of : PLAN: ROM plus negative GBS obtained - positive d/c home
== END 2021-09-11 22:25 | disposition home or self-care (01) ==
LOC: WPOUT 20:53 → WP 20:54
PROVIDERS: Visit Provider Obstetrics & Gynecology
DX: Z03.71 Encounter for suspected problem with amniotic cavity and membrane ruled out (principal); O98.813 Other maternal infectious and parasitic diseases complicating pregnancy, third trimester; B95.1 Streptococcus, group B, as the cause of diseases classified elsewhere; Z3A.36 36 weeks gestation of pregnancy; Z87.891 Personal history of nicotine dependence
CPT/HCPCS: 59025; 59050; 84112; 87653; 99218; G0378

== ENCOUNTER 2021-09-24 13:25 | Outpatient (CLI) | payer OTHER, SELFPAY ==
[2021-09-24 13:49] VITALS: BMI 26.2
[2021-09-24 14:09] VITALS: TEMP 36.6
[2021-09-24 14:10] VITALS: BP 113/73; PULSE 102
[2021-09-24 14:28] LABS: ROM Internal Control Test YES-OK TO RESULT pt. (Internal QC); ROM Patient Test Negative (Negative)
--- NOTE | 2021-09-26 11:13 | PCM.PN.OB ---
Subjective Subjective This is a 25-year-old G3, P1 who presents at 38 weeks 3 days gestation with complaints of labor discomfort. Objective Data Objective Data Vital Signs: Vital Signs Temp Pulse BP 97.8 F 102 H 113/73 09/24/21 14:09 09/24/21 14:10 09/24/21 14:10 Weight: 143 lb Body Mass Index (BMI) 26.2 NST FHR Rate Baby A NST Reactive:: Yes FHR Category:: Category I Assessment & Plan (1) False labor, antepartum: PLAN: 38+ week intrauterine with false labor. Nonstress test is reactive. No change in cervix after monitoring 1 to 2 hours. ROM test negative. Will discharge to home with routine labor instructions.
== END 2021-09-24 15:15 | disposition home or self-care (01) ==
LOC: WPOUT 13:36 → WP 13:36
PROVIDERS: Referring Provider Obstetrics & Gynecology; Visit Provider Obstetrics & Gynecology
DX: O47.1 False labor at or after 37 completed weeks of gestation (principal); Z3A.38 38 weeks gestation of pregnancy
CPT/HCPCS: 59025; 59050; 84112; 99218; G0378

== ENCOUNTER 2021-10-02 09:55 | Inpatient (IN) | payer OTHER, SELFPAY ==
[2021-10-02] VITALS (40 sets, daily range): BP systolic 88–132; BP diastolic 55–76; PULSE 66–92; RESP 14–18; TEMP 36.1–36.8; O2SAT 96–100; BMI 26.6
[2021-10-02 09:54] LABS: ROM Internal Control Test YES-OK TO RESULT pt. (Internal QC)
[2021-10-02 09:55] LABS: ROM Patient Test POSITIVE (Negative)
[2021-10-02] MEDS: Lactated Ringers 1,000 ML 50 ML IV (10:55)
[2021-10-02 11:21] LABS: Hematocrit 36.8 % (37-47); Hemoglobin 12.2 g/dL (12.0-15.0); Mean Corpuscular Hgb 30.4 pg (27.0-32.0); Mean Corpuscular Volume 91.8 fL (81-99); Red Blood Count 4.01 M/mm3 (4.2-5.4); White Blood Count 15.2 K/mm3 (4.4-11.0)
[2021-10-02 11:22] LABS: Absolute Lymphocyte Count 1.52 X10^3/uL (0.83-4.51); Absolute Neutrophil Count 11.9 X10^3/uL (2.0-7.7); Basophil% 0.7 % (0-1); Eosinophil# 0.41 X10^3/uL; Eosinophils% 2.7 % (0-5); Lymphocyte # 1.52 X10^3/ul (0.83-4.51); Mean Corp Hgb Conc 33.2 g/dL (32-36); Mean Platelet Vol. 11.2 fl (6.2-12.0); Monocyte# 1.02 X10^3/uL; Monocyte% 6.7 % (0-10); NRBC Flagged by Analyzer 0 % (0-5); Neutrophil # 11.89 X10^3/uL (2.7-7.7); Neutrophil % 78.2 % (47-70); Platelet Count 221 K/mm3 (150-450); RBC Distribution Width CV 14.1 % (11.6-14.6); RBC Distribution Width SD 46.8 fl (35.1-43.9)
--- NOTE | 2021-10-02 13:15 | HP.PCM.OB_ITS ---
HPI - General General Date of Admission: 10/02/21 HPI Narrative PAGE FADUMO, is a 25 F who presents with leaking of fluid and contractions. Maternal Data Information JEFF Calculator Estimated Delivery Date Method Current WG Current Estimate 10/05/21 Ultrasound #1 39w 4d PFSH PFSH Medical History Vacuum-assisted vaginal delivery Home Medications Caplet 1 cap PO/SL DAILY 10/20/19 [History Last Taken 09/11/21] Allergy/AdvReac Type Severity Reaction Status Date / Time Sulfa (Sulfonamide Allergy Rash Verified 10/02/21 11:48 Antibiotics) Surgical History S/P appendectomy [place] teeth removed Social History Smoking Status: Never smoker History 3 Elective abortions Hx Para 1 Spontaneous abortions 1 Hx # Term Pregnancies 1 Ectopic pregnancies Hx # Pregnancies Multiple births # of living children 1 NST FHR Rate Baby A Baseline: 135 Variability:: Moderate Accelerations:: 15 x 15 Decelerations:: None NST Reactive:: Yes FHR Category:: Category I Uterine Activity:: 4/10 Vital Signs Vital Signs Vital Signs: 10/02/21 09:35 10/02/21 09:36 10/02/21 12:15 Temperature 97.6 F L 97.8 F Temperature Source Temporal Temporal Pulse Rate 83 81 Blood Pressure 107/56 L 105/65 BP Systolic 107 105 BP Diastolic 56 65 Pulse Ox 10/02/21 13:29 10/02/21 13:32 10/02/21 14:08 Temperature 98.2 F Temperature Source Temporal Pulse Rate 74 82 Blood Pressure 105/55 L 88/67 L BP Systolic 105 88 BP Diastolic 55 67 Pulse Ox 10/02/21 14:10 10/02/21 14:47 10/02/21 14:49 Temperature 98.0 F 97.2 F L Temperature Source Temporal Temporal Pulse Rate 82 Blood Pressure 101/55 L BP Systolic 101 BP Diastolic 55 Pulse Ox 10/02/21 15:55 10/02/21 16:03 10/02/21 16:04 Temperature 97.5 F L Temperature Source Temporal Pulse Rate 92 88 Blood Pressure 113/58 L BP Systolic 113 BP Diastolic 58 Pulse Ox 99 10/02/21 16:39 10/02/21 16:44 10/02/21 16:55 Temperature 97.9 F Temperature Source Temporal Pulse Rate 82 76 Blood Pressure BP Systolic BP Diastolic Pulse Ox 97 98 10/02/21 17:07 10/02/21 17:55 10/02/21 18:01 Temperature 97.8 F Temperature Source Temporal Pulse Rate 85 66 Blood Pressure 113/73 115/66 BP Systolic 113 115 BP Diastolic 73 66 Pulse Ox 10/02/21 19:00 10/02/21 19:05 10/02/21 19:10 Temperature 98.1 F Temperature Source Temporal Pulse Rate 85 80 82 Blood Pressure 124/62 H BP Systolic 124 BP Diastolic 62 Pulse Ox 100 100 100 10/02/21 19:15 10/02/21 19:20 10/02/21 19:25 Temperature 97.6 F L Temperature Source Temporal Pulse Rate 87 86 79 Blood Pressure 128/76 H BP Systolic 128 BP Diastolic 76 Pulse Ox 100 100 100 10/02/21 19:30 10/02/21 19:35 10/02/21 19:40 Temperature 97.6 F L Temperature Source Temporal Pulse Rate 83 80 85 Blood Pressure 120/60 BP Systolic 120 BP Diastolic 60 Pulse Ox 100 100 100 10/02/21 19:45 10/02/21 19:50 10/02/21 19:55 Temperature Temperature Source Pulse Rate 79 87 87 Blood Pressure 120/63 BP Systolic 120 BP Diastolic 63 Pulse Ox 100 100 100 Weight Weight: 66.224 kg Body Mass Index (BMI) 26.6 Physical Exam Const alert, oriented x3 and no apparent distress HEENT normocephalic Resp normal respiratory effort, normal air movement and clear to auscultation bilaterally Cardio regular rate and regular rhythm GI normal to inspection, nondistended, normoactive bowel sounds, soft to palpation, non-tender and non-distended Inspection: gravid Labs Labs Labs: Blood Type A NEGATIVE Antibody Screen NEGATIVE Hct 36.8 % (37-47) L Hgb 12.2 g/dL (12.0-15.0) Obstetrics US Syphilis Total Ab Non-reactive Rubella IgG Antibody Reactive (Nonreactive) Hep Bs Antigen Non-Reactive (Nonreactive) Chlamydia DNA (MADY) Negative (Negative) Neisseria gonorrhoeae DNA (MADY) Negative (Negative) HIV 1&2 Antibody Non-Reactive (Nonreactive) Glucose 1 Hr 50 gm 71 mg/dL (70-140) Group B Strep DNA POSITIVE (Negative) H Rhogam given: No Miscellaneous Test ACOG ANTEPARTUM RECORD - HISTORY AND PHYSICAL (10/02/2021) Name: LUANN MARTINES History of this : This is a 25 year old [id number] presents at 39 wks + 4 days gestation. OB Physician: Aurora Major Dallas[facility] ...................................................................... : 1995 Age: 25 Address: [address] [place] [address] Phone: H) [phone] Insurance Carrier: [facility] [id number] Emergency Contact: CARLITO MARTINES/SPOUSE [phone] ...................................................................... Final JEFF: 10/05/21 By Ultrasound: 10 weeks 1 day PARITY: (G-Total Pregnancies P-Fullterm,Premature,Induced AB,Spont AB, Ectopics, Multiple,Living) JEFF CONFIRMATION: By LMP: 12/07/20 By First Ultrasound Exam: 10/05/21 Final JEFF: 10/05/21 OB PROBLEM LIST: A negative., Spouse blood type O POSITIVE RhoGAM at 28-29 wks Allergic to SULFA! 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 Drug Use - denies use of street drugs Sexual Activity - [employer] Residence - Lives w/ Place of - [place], [place] Hours Worked - 15 hrs wk Spouse-Sig Other Name - Carlito Martines Spouse-Sig Other Occupation - Solorio Spouse-Sig Other Phone No - [phone] Children Name(s) - Sadia (') PRIOR DELIVERY HISTORY DEL DATE GEST LAB WT LB WT OZ TYPE ANES LABOR TX 02 Nov 09 39 23 6 14 Vag Epidural No 18 Asge 21 6 0 0 0 Sab None No ANTEPARTUM FLOW CHART VISIT GE RTC FU F F NE U U DATE WK MD WKS HT PN HR M SS BP ED WT NE GL D EF ST __ ____ ___ __ __ ___ __ __ __ ___ __ __ __ ___ __ 01 October 39 CM 1 40 V + + 102/76 0 146 - - 3 60 -3 21 September 38 CM 1 38 V + + 94/62 sl 143 ne ne FT Aug 37 JMW 1 37 + + 104/78 0 142 - - 04 Aug 34 CM 2 34 V + + 100/60 0 137 ne ne 21 Jul 32 CM 2 32 V + + 120/72 0 136 ne ne 04 Jul 29 CM 2 29 + + 100/62 0 133 - - 21 Jul 20 KAYL 2 28 + + 104/60 0 133 ne ne Jun 14 CM 4 23 + + 100/56 0 128 ne ne May 10 CM 4 20 +U + 122/80 0 123 - - Mar 15 CM 4 + 100/60 0 116 ne ne Feb 10 CM 4 +U 110/76 114 - - ANTEPARTUM NOTE(S): Oct 01 2021: watery disharge, RLP, groin pain Sep 21 2021: FM well Sep 15 2021: Good FM,Feeling Well Aug 24 2021: FM well, No complaints Aug 10 2021: FM well, No complaints Jul 24 2021: varicose veins Jul 13 2021: Labs completed, Rhogam given Jun 09 2021: Glucola and instructions given, FM well May 12 2021: see note Apr 14 2021: Mar 10 2021: COMPREHENSIVE ANTEPARTUM NOTE(S): Oct 01 2021: Page is here for a pnv at 39/3. Good FM. No edema present. Reports 2 instances of having watery, fluid-like discharge this morning. Denies ctx's/ rand farris. Round ligament pain, groin pain and pelvic pressure present. Desires cervix check. MK Oct 01 2021: 39/3w. Anti-D ab positive, now negative. Resolved choroid plexus cyst. Growth AGA 34w. Watery pink tinged discharge this morning x2. No contractions. Ferning and nitrazine negative. ABELINO 11, DVP 3. Water not broken. Precautions discussed: persistent leaking, large gush of fluid, bleeding, DFM, regular contractions. Declined 40w induction. F/u 1w. CM Sep 22 2021: H taken to OB. tkg Sep 21 2021: 38/0w. Anti-D antibody positive, now neg. Resolved choroid plexus cyst. Growth AGA at 34w. F/u 1w. Plan 40w induction next week. CM Aug 24 2021: 34/0w Anti- D antibody positive, no longer positive, cannot detect. Choroid plexus cyst, resolved. Growth AGA today. F/u 2w. CM Aug 10 2021: 32/0w. Anti - antibody positive - titers too low to titer, neg antibody. Choroid plexus cyst resolved. Growth next visit, 2w. CM Jul 24 2021: Page is 29w4d here for PNV good FM no edema but does C/O varicose veins. Otherwise well. no concerns. BR Jul 24 2021: 29/4w. Anti-d antibody positive - titers have been too low to titer >2 times. Discussed doing one more time vs stopping. Pt is comfortable stopping at this time. Choroid plexus cyst resolved. Will repeat Growth at 34- 36w. Discussed TDap, will consider. Discussed varicose veins and spider veins, unchanged. Rec support hose for comfort. F/u 2w. CM Jul 13 2021: 28/0w. Choroid plexus cyst resolved. Growth AGA. Anti D antibody - negative x2. Repeat today. Rhogam given. Glucola today. Will do additional growth US at 34w. Discussed varicose veins - recommend support hose. Will try OTC, notify if needs rx. Signs/sypmptoms of VTE discussed. f/u 2w. CM Jun 09 2021: 23/1w. Anti-D antibody positive, continue titers q4w. Neg antibody last draw, if continues negative, consider stopping. Choroid plexus cyst on anatomy US, repeat US in 4w. Glucola given for next visit. F/u 4w. CM May 12 2021: Page is 19w1d here today for PNV. Positive movement, no edema. She states she is having stress incontinence. Otherwise she is doing well. BR May 12 2021: 19/1w visit. Anatomy US wnl aside from choroid plexus cyst - isolated, no other anomalies. Common US finding second trimester. As isolated - variant of normal. Repeat US third trimester. Anti - D antibody. Titers q4w, have been too weak to titer. F/u 4w. CM Apr 14 2021: 15/1w visit. Rhd alloimmunization - titers too weak to titer, will repeat today and then q4. If >than 1:16 will need further testing. S/p A[facility] consult. F/u 4w with anatomy US. CM Apr 14 2021: NOB NURSE VISIT-- Luann is a 25 yo G 3 P 1 planning a vag del at [facility] with epidural using [facility] for post disch ped care and to breastfeed. 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 Her , Carlito is a solorio. The was a surprise but they are happy. Their daughter, Sadia is 18 months old and just stopped nursing one month ago. Mar 13 2021: RH D antibody positive. is O positive. Will get RH D zygosity/genotyping testing. Patient titers. Had lengthy discussion with patient to explain risks of RH alloimmunization and next stepts to determine RH status of fetus. CM Mar 10 2021: Page here for PVN Doing well. Concerned about emptying her bladder she feels she needs to push harder to urinate. CB ..........NEW ... Mar 10 2021: 10/w. JEFF FINAL 10/05/21 by 10w US. Feeling nauseous, but manageable. PNP drawn today. Denies genetic hx, declines genetic screening. F/u 4w and NOB. CM Mar 03 2021: Luann is a 25 yr old Gr 3 P1, Chemical x 1, here w/her , Carlito for Missed Menses. No menses since chemical pregnany 12/07/20; states she was to check a Home test @ 6 wks after, which was negative; home test positive 02/03, UPT positive here this visit. Reporting nausea, breast tenderness. Nursing her 16 month old 2 x day. She has had no cramping or bleeding. Hx VAVD 10/2019. REVIEW OF SYSTEMS: GENERAL - Denies fever, or chills SKIN - Denies rash, new skin lesions, or change in moles EYES - Denies blurred vision, or change in visual acuity EARS - Denies ear pain, or difficulty hearing NOSE - Denies nasal congestion, discharge, or bleeding MOUTH - Denies sore throat, or difficulty swallowing NECK - Denies pain or swelling RESPIRATORY - Denies shortness of breath, cough, wheezing CARDIOVASCULAR - Denies palpitations, chest pain, orthopnea, PND, peripheral edema, syncope or claudication GASTROINTESTINAL - Denies nausea, vomiting, diarrhea, constipation, Denies abdominal pain, melena and or bright red blood GENITOURINARY - Denies dysuria, frequency of urination, urgency, or hesitancy MUSCULOSKELETAL - Denies joint or muscle pain, or back pain NEUROLOGICAL - Denies localized numbness, weakness, or tingling PSYCHIATRIC - Denies depression, anxiety, substance abuse or suicide attempts ENDOCRINE - Denies heat or cold intolerance, weight loss or gain, increasing thirst HEMATO-IMMUNOLOGIC - Denies easy bruising, bleeding, oral ulcerations or recurrent infections GENETICS SCREENING: Age 35+ years: No Thalassemia: No Neural Tube Defect: No Down Syndrome: No MAYELA-SACHS: No Sickle Cell Disease: No Hemophilia: No Musc. Dystrophy: No Cystic Fibrosis: No-declines screening [place] Chorea: No Mental Retardation: No Fragile X: No Other genetic: Yes Other defects: Yes SABs/still births: Yes x1 Drugs since LMP: Yes, prometrium INFECTION HISTORY: High risk AIDS: No High risk Hepatitis: No Exposed to TB: No Exposed to Herpes: No Rash/viral illness since LMP: No History of STD: No MENSTRUAL HISTORY: *Menses Amount/Duration: 5-7 daysMenses Regularity: 35-38 days apartMenarche (Age Onset): 13* PAST SUMMARY: PARITY: 1. Total Pregnancies............ 3 2. Full Term Pregnancies........ 1 3. Premature.................... 0 4. Abortions - Induced.......... 0 5. Abortions - Spontaneous...... 1 6. Ectopics..................... 0 7. Multiple Births.............. 0 8. Living Children.............. 1 PAST #1: Date of :.................. 10/23/19 Gestation Weeks:................ 39 Length of labor(hours):......... 23 Sex:............................ F Weight-lbs:............... 6 Weight-oz:................ 14 Type of Delivery:............... Vag Type of Anesthesia:............. Epidural Place of Delivery:.............. [facility] Treatment of Labor?:.... No Comment: NO PAST #2: Date of :.................. 12/07/20 Gestation Weeks:................ 6 Length of labor(hours):......... 0 Sex:............................ UNKNOWN Weight-lbs:............... 0 Weight-oz:................ 0 Type of Delivery:............... Sab Type of Anesthesia:............. None Place of Delivery:.............. [place] Treatment of Labor?:.... No Comment: PHYSICAL EXAMINATION General Appearence: 25 yo female in no acute distress Vital Signs: AF, VSS Heart: RRR without rubs or gallops Lungs: CTA x 2 Breasts: deferred Abdomen: gravid Pelvis: Cervix: Presentation: cephalic Station: Fetus: Size: AGA Movement: present Heart: present LAB TEST(S) ORDERED SINCE:01/08/21 05/13/2021 MISCELLANEOUS LAB PROCEDURE 04/20/2021 MISCELLANEOUS LAB PROCEDURE 03/18/2021 MISCELLANEOUS LAB PROCEDURE 03/12/2021 URINE CULTURE 03/10/2021 RUBELLA IGG 03/10/2021 T AND S-NO CHARGE W/PNP 03/10/2021 L509.8000 03/10/2021 HIV - [facility] 03/10/2021 HEPATITIS C ANTIBODY 03/10/2021 HEPATITIS B SURFACE ANTIGEN 03/10/2021 CBC W/DIFF, AUTOMATED 03/10/2021 ANTIBODY PANEL ID 03/06/2021 CHLAMYDIA/GC MADY APTIMA 03/03/2021 HCG TITER QUANT., SERUM 10/02/2021 TYPE AND SCREEN 10/02/2021 COVID 19 AG RAPID (RN COLLECT) 10/02/2021 CBC W/DIFF, AUTOMATED 10/02/2021 (ROM) RUPTURE OF MEMBRANES 09/24/2021 (ROM) RUPTURE OF MEMBRANES 09/11/2021 GROUP B STREP DNA BY PCR 09/11/2021 (ROM) RUPTURE OF MEMBRANES 07/15/2021 MISCELLANEOUS LAB PROCEDURE 07/13/2021 GLUCOSE CHALLENGE GEST 1H 50G 07/13/2021 CBC-COMPLETE BLOOD CNT NO DIFF 07/13/2021 [id number] 06/11/2021 MISCELLANEOUS LAB PROCEDURE == ==== Order Observation Description Value Ref_Range A* Site == ==== R [facility]~[address] [place], [address]~ TYPE AND SCRE AB SCREEN GEL NEGATIVE ML COVID 19 AG RAP NOTE SORIANO [facility]~[address] [place], [address]~ TYPE AND SCRE ANTI A Test Not Performed ML This specimen has been REJECTED due to Laboratory criteria: MisHandled. Juliana has been notified of need of recollection. 10/02/211132 Deric Sterner TYPE AND SCRE ANTI B Test Not Performed ML This specimen has been REJECTED due to Laboratory criteria: MisHandled. Juliana has been notified of need of recollection. 10/02/211132 Deric Sterner TYPE AND SCRE ANTI D Test Not Performed ML This specimen has been REJECTED due to Laboratory criteria: MisHandled. Juliana has been notified of need of recollection. 10/02/211132 Deric Sterner TYPE AND SCRE A1 CELL Test Not Performed ML This specimen has been REJECTED due to Laboratory criteria: MisHandled. Juliana has been notified of need of recollection. 10/02/211132 Deric Sterner TYPE AND SCRE B CELLS Test Not Performed ML This specimen has been REJECTED due to Laboratory criteria: MisHandled. Juliana has been notified of need of recollection. 10/02/211132 Deric Sterner TYPE AND SCRE BLOOD TYPE GEL Test Not Performed ML This specimen has been REJECTED due to Laboratory criteria: MisHandled. Juliana has been notified of need of recollection. 10/02/211132 Deric Sterner TYPE AND SCRE BLD TYPE RECHEK Test Not Performed ML This specimen has been REJECTED due to Laboratory criteria: MisHandled. Juliana has been notified of need of recollection. 10/02/21 1133 Deric Black TYPE AND SCRE AB SCREEN GEL Test Not Performed ML This specimen has been REJECTED due to Laboratory criteria: MisHandledSony Andrews has been notified of need of recollection. 10/02/21 1133 Deric Black CBC W/DIFF, AUT NOTE SORIANO CBC W/DIFF, AUT WBC 15.2 K/mm3 4.4-11.0 H ML CBC W/DIFF, AUT RBC 4.01 M/mm3 4.2-5.4 L ML CBC W/DIFF, AUT HGB 12.2 g/dL 12.0-15.0 ML CBC W/DIFF, AUT HCT 36.8 37-47 L ML CBC W/DIFF, AUT MCV 91.8 fL 81-99 ML CBC W/DIFF, AUT MCH 30.4 pg 27.0-32.0 ML CBC W/DIFF, AUT MCHC 33.2 g/dL 32-36 ML CBC W/DIFF, AUT RDW CV 14.1 11.6-14.6 ML CBC W/DIFF, AUT RDW SD 46.8 fl 35.1-43.9 H ML CBC W/DIFF, AUT PLT 221 K/mm3 150-450 ML CBC W/DIFF, AUT MPV 11.2 fl 6.2-12.0 ML CBC W/DIFF, AUT NEUT% 78.2 47-70 H ML CBC W/DIFF, AUT LY% 10.0 19-41 L ML CBC W/DIFF, AUT MONO% 6.7 0-10 ML CBC W/DIFF, AUT EO% 2.7 0-5 ML CBC W/DIFF, AUT BASO% 0.7 0-1 ML CBC W/DIFF, AUT IG% 1.700 0.0-0.9 H ML IG% - Immature Granulocytes (promyelocytes, myelocytes and metamyelocytes) > 1% indicates that a LEFT SHIFT is Present. CBC W/DIFF, AUT ABSOLUTE NEUT 11.9 X10 3/uL 2.0-7.7 H ML CBC W/DIFF, AUT ABSOLUTE LYMPH 1.52 X10 3/uL 0.83-4.51 ML CBC W/DIFF, AUT NUCLEATED RBC 0 0-5 ML (ROM) RUPTURE O NOTE SORIANO (ROM) RUPTURE O ROM POSITIVE Negative A ML Amniotic fluid present indicates rupture of Membranes. RESULTS CALLED TO IMANI MACHADO 10/02/21 0954 Chelsey Murcia. REPORT READ BACK BY SAME . (ROM) RUPTURE O NOTE SORIANO (ROM) RUPTURE O ROM Negative Negative ML Amniotic fluid not present indicates No Rupture of Membranes at time of specimen collection. (ROM) RUPTURE O NOTE SORIANO (ROM) RUPTURE O ROM Negative Negative ML Amniotic fluid not present indicates No Rupture of Membranes at time of specimen collection. GROUP B STREP D NOTE SORIANO GROUP B STREP D GBS DNA ASSAY POSITIVE Negative A ML CRITICAL VALUE VERIFIED. CALLED TO DEL BROOKS 09/12/21 0014 Uche Waldron. RESULTS READ BACK BY SAME . Penicillin is the recommended antibiotic for the treatment of Group B Streptococcal disease. In case of penicillin allergy, susceptibility testing for Clindamycin and Erythromycin is suggested by request. MISCELLANEOUS L NOTE SORIANO MISCELLANEOUS [facility] TEST ML TEST RESULT LIMITS Antibody Identification Antibody Id #1 An antibody identification panel was non-reactive. There was no evidence of the presence of atypical red cell antibody. TESTING PERFORMED AT [facility]. ORIGINAL REPORT ON FILE IN LAB CONTAINS ADDITIONAL TEST SITE INFORMATION. [facility]~[address] [place], [address]~ [id number] AB SCREEN GEL NEGATIVE ML GLUCOSE CHALLEN NOTE SORIANO GLUCOSE CHALLEN GLU GEST 50G 1H 71 mg/dL 70-140 ML CBC-COMPLETE BL NOTE SORIANO CBC-COMPLETE BL WBC 12.4 K/mm3 4.4-11.0 H ML CBC-COMPLETE BL RBC 3.59 M/mm3 4.2-5.4 L ML CBC-COMPLETE BL HGB 11.5 g/dL 12.0-15.0 L ML CBC-COMPLETE BL HCT 33.5 37-47 L ML CBC-COMPLETE BL MCV 93.3 fL 81-99 ML CBC-COMPLETE BL MCH 32.0 pg 27.0-32.0 ML CBC-COMPLETE BL MCHC 34.3 g/dL 32-36 ML CBC-COMPLETE BL RDW CV 13.3 11.6-14.6 ML CBC-COMPLETE BL RDW SD 45.4 fl 35.1-43.9 H ML CBC-COMPLETE BL PLT 228 K/mm3 150-450 ML CBC-COMPLETE BL MPV 10.5 fl 6.2-12.0 ML MISCELLANEOUS L NOTE SORIANO MISCELLANEOUS [facility] LAB TEST ML TEST RESULT LIMITS Antibody Identification Antibody ID #1 An antibody identification panel was non-reactive. There was no evidence of the presence of atypical red cell antibody. TESTING PERFORMED AT [facility]. ORIGINAL REPORT ON FILE IN LAB CONTAINS ADDITIONAL TEST SITE INFORMATION. MISCELLANEOUS L NOTE SORIANO MISCELLANEOUS [facility] LAB TEST ML TEST RESULT LIMITS Antibody Id. #1 An antibody identification panel was non-reactive. There was no evidence of the presence of atypical red cell antibody. ANTI-D NOT DETECTED AT THIS TIME TESTING PERFORMED AT [facility]. ORIGINAL REPORT ON FILE IN LAB CONTAINS ADDITIONAL TEST SITE INFORMATION. MISCELLANEOUS L NOTE SORIANO MISCELLANEOUS [facility] LAB TEST ML TEST RESULT LIMITS Antibody Identification Antibody Id. #1 Anti-D Afshan Titer #1 The antibody is too weak to titer at this time. If a numerical titer result has been reported, please note that this result is the reciprocal value of titer results formerly reported as 1:2,1:4, 1:8, etc. These results are now reported as 2, 4, 8, etc. The [employer] has recommended this change in titer reporting formats to simply reflect the reciprocal value of the titer. [facility] ORIGINAL REPORT ON FILE IN LAB CONTAINS ADDITIONAL TEST SITE INFORMATION. MISCELLANEOUS L NOTE CHRISTIE MISCELLANEOUS [facility] LAB TEST ML TEST RESULT LIMITS Antibody Identification Antibody ID #1 Anti-D Afshan Titer #1 The antibody is too weak to titer at this time. If a numerical titer result has been reported, please note that this result is the reciprocal value of titer results formerly reported as 1:2,1:4, 1:8, etc. These results are now reported as 2, 4, 8, etc. The [employer] has recommended this change in titer reporting formats to simply reflect the reciprocal value of the titer. [facility] ORIGINAL REPORT ON FILE IN LAB CONTAINS ADDITIONAL TEST SITE INFORMATION. URINE CULTURE NOTE CHRISTIE PLATA N [facility]~[address] [place], [address]~ ANTIBODY PANEL ANTIBODY ID D ML PN N [facility]~[address] [place], [address]~ T AND AB SCREEN GEL POSITIVE A ML HEPATITIS B DARIUS NOTE SORIANO HEPATITIS B DARIUS HEP B SURF AG Non-Reactive Nonreactive ML HIV - [facility] NOTE SORIANO HIV - [facility] HIV Non-Reactive Nonreactive ML L509.8000 NOTE SORIANO L509.8000 SYPHILIS ABS Non-reactive ML RUBELLA IGG NOTE SORIANO RUBELLA IGG RUBELLA IGG Reactive Nonreactive ML Antibody Results Interpretation of Immune Status Non Reactive Presumed Non-Immune Equivocal Equivocal Reactive Presumed Immune HEPATITIS C ANT NOTE SORIANO HEPATITIS C ANT HEPATITIS C AB Non-Reactive Nonreactive ML Non Reactive: < 0.8 Equivocal: >/= 0.8 to < 1.0 Reactive: >/= 1.0 The CDC recommends that a reactive/equivocal HCV antibody result be followed up by the HCV Nucleic Acid Amplification test ([id number]) CBC W/DIFF, AUT NOTE SORIANO CBC W/DIFF, AUT WBC 10.4 K/mm3 4.4-11.0 ML CBC W/DIFF, AUT RBC 4.09 M/mm3 4.2-5.4 L ML CBC W/DIFF, AUT HGB 12.2 g/dL 12.0-15.0 ML CBC W/DIFF, AUT HCT 37.5 37-47 ML CBC W/DIFF, AUT MCV 91.7 fL 81-99 ML CBC W/DIFF, AUT MCH 29.8 pg 27.0-32.0 ML CBC W/DIFF, AUT MCHC 32.5 g/dL 32-36 ML CBC W/DIFF, AUT RDW CV 12.8 11.6-14.6 ML CBC W/DIFF, AUT RDW SD 42.2 fl 35.1-43.9 ML CBC W/DIFF, AUT PLT 268 K/mm3 150-450 ML CBC W/DIFF, AUT MPV 10.9 fl 6.2-12.0 ML CBC W/DIFF, AUT NEUT% 74.0 47-70 H ML CBC W/DIFF, AUT LY% 15.0 19-41 L ML CBC W/DIFF, AUT MONO% 5.6 0-10 ML CBC W/DIFF, AUT EO% 4.0 0-5 ML CBC W/DIFF, AUT BASO% 0.7 0-1 ML CBC W/DIFF, AUT IG% 0.700 0.0-0.9 ML IG% - Immature Granulocytes (promyelocytes, myelocytes and metamyelocytes) > 1% indicates that a LEFT SHIFT is Present. CBC W/DIFF, AUT ABSOLUTE NEUT 7.7 X10 3/uL 2.0-7.7 ML CBC W/DIFF, AUT ABSOLUTE LYMPH 1.56 X10 3/uL 0.83-4.51 ML CBC W/DIFF, AUT NUCLEATED RBC 0 0-5 ML CHLAMYDIA/GC NA NOTE SORIANO CHLAMYDIA/GC NA CHLAMY,NUC ACID Negative Negative [facility] CHLAMYDIA/GC NA GC BY NUC ACID Negative Negative [facility] Performed at: = - [facility] [id number] Tile Fitter: Tara Crain MD, Phone: [phone] HCG TITER QUANT NOTE SORIANO HCG TITER QUANT HCG QUANT. 19496 mIU/mL 1-3 H ML hCG levels with Gestational Age Gestational Age hCG mIU/mL (IU/L) 0.2 - 1 week 5 - 50 1-2 weeks 50 - 500 2-3 weeks 100 - 5000 3-4 weeks 500 - 42067 4-5 weeks 1000 - 19428 5-6 weeks 74240 - 100,000 6-8 weeks 90217 - 200,000 2-3 months 38586 - 100,000 Assessment & Plan (1) 39 weeks gestation of : PLAN: PCN for GBS Expectant management
[2021-10-02] MEDS: Penicillin G 3,000,000 Units 50 ML 100 UNITS IV (14:59)
[2021-10-02] MEDS: Oxytocin 30 units/NS 500 ml 30 UNITS/500 ML IV.SOLN IV (15:47)
[2021-10-02] MEDS: Oxytocin 30 units/NS 500 ml 30 UNITS/500 ML IV.SOLN 334 UNITS IV (18:47)
--- NOTE | 2021-10-02 19:24 | EX.PCM.OBRPT ---
Assessment & Plan (1) 39 weeks gestation of : (2) (spontaneous vaginal delivery): Maternal Data Information JEFF Calculator Estimated Delivery Date Method Current WG Current Estimate 10/05/21 Ultrasound #1 39w 4d Vaginal Delivery Maternal Presentation Maternal Presentation: Active Labor and Spontaneous Rupture of Membranes Maternal Presentation: pitocin augmentation Operative Information Date of Procedure: 10/02/21 Pre-Operative Diagnosis: 1. 39 4/7 weeks gestation 2. SROM Post-Operative Diagnosis: 1. 39 4/7 weeks gestation 2. SROM Surgery / Procedure Performed: Spontaneous Vaginal Delivery Type of Anesthesia: None Estimated Blood Loss: 100 ml Findings Description of Procedure: Patient was FD+4 station on my arrival. She pushed to delivery a male over an intact perineum in OA. The infant was placed on the maternal abdomen and further attended by nursery personnel. The cord was doubly clamped and cut at 5 minutes of life. Cord blood was obtained. The placenta delivered spontaneously and appeared intact on inspection. Sponge counts were correct x 2. Presentation: Vertex Time of Membrane Rupture: 1400h 10/01/21 Amniotic Fluid Description: Clear Placental Delivery Description: Spontaneous Cord Vessel Description: 3 Vessels Cord Entanglement: None Infant A Gender: Male (1 minute): 8 (5 minute): 9 Delayed Cord Clamping: Yes Post Vaginal Delivery Medications Given After Delivery: IV Pitocin Episiotomy Description: None Laceration: None Complication Complications: None
--- NOTE | 2021-10-02 19:34 | NURSING ---
Bedside report given to Zuly Aquino RN
[2021-10-02] MEDS: 0.9% Saline Lock 10 ML Syringe IV (22:22)
[2021-10-03 03:35] VITALS: BP 103/60; PULSE 85; RESP 16; TEMP 36.1
[2021-10-03 08:08] VITALS: BP 107/57; PULSE 88; RESP 17; TEMP 36.2
--- NOTE | 2021-10-03 08:52 | PCM.PN.OB ---
Subjective Subjective No issues overnight. Patient is doing well. Denies painfulness. She is out of bed, voiding without difficulty. is going well. Objective Data Objective Data Vital Signs: Vital Signs Temp Pulse Resp BP Pulse Ox 97.2 F L 88 17 107/57 L 96 10/03/21 08:08 10/03/21 08:08 10/03/21 08:08 10/03/21 08:08 10/02/21 21:00 Oxygen Delivery Method Room Air Weight: 66.224 kg Body Mass Index (BMI) 26.6 Intake & Output: Intake and Output for Last 24 Hours 10/01/21 10/02/21 10/03/21 23:59 23:59 23:59 Intake Total 1664.86 / 1664.86 Output Total 600 / 600 600 / 600 Balance 1064.86 / 1064.86 -600 / -600 Lab / Micro Data Result Diagrams: 10/02/21 10:45 Labs: Laboratory Results - last 24 hr 10/02/21 09:23: Vag Amniotic Fld Detect POSITIVE H 10/02/21 10:45: WBC 15.2 H, RBC 4.01 L, Hgb 12.2, Hct 36.8 L, MCV 91.8, MCH 30.4, MCHC 33.2, RDW Std Deviation 46.8 H, RDW Coeff of Ann 14.1, Plt Count 221, MPV 11.2, Immature Gran % (Auto) 1.700 H, Neut % (Auto) 78.2 H, Lymph % (Auto) 10.0 L, [place] % (Auto) 6.7, Eos % (Auto) 2.7, Baso % (Auto) 0.7, Absolute Neuts (auto) 11.9 H, Absolute Lymphs (auto) 1.52, Nucleated RBC % 0 10/02/21 10:45: Blood Type Cancelled, A1 Antigen Typing Cancelled, Rho(D) Type Cancelled, Antibody Screen Cancelled 10/02/21 11:45: Blood Type A NEGATIVE, Antibody Screen NEGATIVE Micro: Microbiology 10/02/21 10:50 Nasal Secretion SARS-CoV-2 Antigen (Rapid) - Final Physical Exam Const alert, oriented x3 and no apparent distress Resp normal respiratory effort and normal air movement Cardio regular rate, regular rhythm, S1 normal heart sound and S2 normal heart sound GI soft to palpation, non-tender and non-distended Narrative: fundus firm and nontender, lochia scant Uterus Palpation: uterus fundus firm and other OB fundus nontender Extremity no calf tenderness Neuro oriented x3 Assessment & Plan (1) (spontaneous vaginal delivery): PLAN: A negative Rubella immune Routine care
--- NOTE | 2021-10-03 09:14 | PCM.DC ---
Discharge Instructions Diet Discharge Diet: No restrictions Activity May resume sexual activity in: 4-6 weeks Dressing / Incision Call your doctor if you observe: Fever of 101 or Higher, Using more than 1 pad per hour, Shortness of breath, Chest pain, Calf discomfort, Uncontrolled pain and - (Persistent or severe headache) Follow Up Care Please Follow Up With: Lee Ann Burk MD When: 3 weeks for telehealth follow up 6 weeks for visit Test Results: Test results from this visit will be discussed in further detail at your follow-up appointment, if applicable. Discharge Plan Admission Admit Date/Time: 10/02/21 09:55 Primary Reason for Your Visit: Vaginal delivery Attending Provider: Lee Ann Duarte Primary Care Provider: Care Physician,No Primary Discharge Orders/Prescriptions Prescriptions: Continued Caplet 1 cap PO/SL DAILY RF: 0 Referrals / Follow Up: Care Physician,No Primary [Primary Care Provider] - Disposition Disposition (needs filled in before D/C Order can be placed): Home, Self Care
[2021-10-03 12:15] VITALS: BP 105/61; PULSE 79; RESP 16; TEMP 36.2
[2021-10-03 15:10] VITALS: BP 99/59; PULSE 82; RESP 16; TEMP 36.2
[2021-10-03 20:01] VITALS: BP 98/50; PULSE 87; RESP 16; TEMP 36.7
== END 2021-10-03 20:25 | disposition home or self-care (01) | DRG 807 ==
LOC: WPOUT 10:06 → WP 10:06
PROVIDERS: Admitting Provider Obstetrics & Gynecology; Visit Provider Obstetrics & Gynecology
DX: O98.82 Other maternal infectious and parasitic diseases complicating childbirth (principal); Z37.0 Single live birth; B95.1 Streptococcus, group B, as the cause of diseases classified elsewhere; Z3A.39 39 weeks gestation of pregnancy
CPT/HCPCS: 59025; 59050; 84112; 85025; 86850; 86900; 86901; 87426; 99218; J7120; A4216; G0378